=== PATIENT | female | born 2005 | race Two or more races ===

== ENCOUNTER → 2023-06-28 | Outpatient (CLI) | payer OTHER | LOC: M WHC 09:59 | PROVIDERS: ATTEND Advanced Practice Midwife | DX: Z34.82 Encounter for supervision of other normal pregnancy, second trimester (principal) ==

== ENCOUNTER → 2023-07-26 | Outpatient (CLI) | payer OTHER ==
[2023-07-26 16:15] LABS: TOTAL PROTEIN,RANDOM URINE 21.7 MG/DL (0.0-14.0)
[2023-07-26 16:20] LABS: CREATININE,RANDOM URINE 242.9 MG/DL
[2023-07-26 17:34] LABS: HEMATOCRIT 36.1 % (36.0-47.0); HEMOGLOBIN 12.2 g/dl (12.0-15.5); MEAN CORPUSCULAR HGB CONC 33.8 g/dl (32.0-36.5); MEAN CORPUSCULAR VOLUME 88.9 fl (80.0-96.0); PLATELET COUNT, AUTOMATED 244 10^3/uL (150-450); RED BLOOD COUNT 4.06 10^6/uL (4.00-5.40); WHITE BLOOD COUNT 7.2 10^3/uL (4.0-10.0)
[2023-07-26 18:00] LABS: URIC ACID 3.3 MG/DL (3.1-7.8)
[2023-07-26 18:02] LABS: LDH LACTATE DEHYDROGENASE 105 U/L (120-246)
[2023-07-26 18:04] LABS: ALT/SGPT 17 U/L (7.0-40); AST/SGOT < 8 U/L (<34); BILIRUBIN,TOTAL 0.3 MG/DL (0.3-1.2); CREATININE FOR GFR 0.44 MG/DL (0.55-1.30)
== END ==
LOC: M PLALAB 13:39
PROVIDERS: ATTEND Advanced Practice Midwife
DX: Z34.82 Encounter for supervision of other normal pregnancy, second trimester (principal)
CPT/HCPCS: 36415; 82247; 82570; 83615; 84156; 84450; 84460; 84550; 85027; G0463

== ENCOUNTER → 2023-08-04 | Outpatient (CLI) | payer OTHER | LOC: M WHC 13:10 | PROVIDERS: ATTEND Advanced Practice Midwife | DX: Z34.82 Encounter for supervision of other normal pregnancy, second trimester (principal) ==

== ENCOUNTER → 2023-08-26 | Outpatient (CLI) | payer OTHER ==
[2023-08-26 18:58] LABS: CHLAMYDIA DNA AMPLIFICATION NEGATIVE (NEGATIVE); GC DNA AMPLIFICATION NEGATIVE (NEGATIVE)
== END ==
LOC: M PLALAB 14:29
PROVIDERS: ATTEND Advanced Practice Midwife
DX: Z34.82 Encounter for supervision of other normal pregnancy, second trimester (principal)

== ENCOUNTER → 2023-10-18 | Outpatient (REF) | payer OTHER | LOC: M PLALAB 15:06 | PROVIDERS: ATTEND Obstetrics & Gynecology | DX: Z36.85 Encounter for antenatal screening for Streptococcus B (principal); Z3A.36 36 weeks gestation of pregnancy ==

== ENCOUNTER 2023-10-31 18:33 | Outpatient (CLI) | payer OTHER ==
[~2023-10-31] VITALS: Ht 167.6 cm; Wt 99.8 kg
[2023-10-31] MEDS ORDERED: HOME MED LIST COMPLETE! XX SCH (19:00)
[2023-10-31 19:48] LABS: TOTAL PROTEIN,RANDOM URINE 30.5 MG/DL (0.0-14.0)
== END 2023-10-31 20:11 | disposition home or self-care (01) ==
LOC: M LDO 18:33
PROVIDERS: ATTEND Advanced Practice Midwife
DX: O36.8130 Decreased fetal movements, third trimester, not applicable or unspecified (principal); Z87.59 Personal history of other complications of pregnancy, childbirth and the puerperium; Z3A.37 37 weeks gestation of pregnancy
CPT/HCPCS: 59025; 82570; 84156; G0463

== ENCOUNTER 2023-11-02 17:11 | Inpatient (IN) | payer OTHER ==
[~2023-11-02] VITALS: Ht 167.6 cm; Wt 99.1 kg
[2023-11-02] MEDS ORDERED: PENICILLIN G POTASSIUM 5 MU IV 5 MU in D5W MINI-BAG PLUS 100 ML IV STA (17:23)
[2023-11-02] MEDS ORDERED: CARBOPROST TROMETHAMINE 250 MCG/ML AMP IM PRN (17:25)
[2023-11-02] MEDS ORDERED: OXYTOCIN DRIP 30 UNITS in IV 1 EA IV PRN (17:25)
[2023-11-02] MEDS ORDERED: LIDOCAINE 1% MDV 20ML VIAL INFIL PRN (17:25)
[2023-11-02] MEDS ORDERED: TRANEXAMIC ACID INJection 1,000 MG in NS 100 ML IV PRN (17:25)
[2023-11-02] MEDS ORDERED: OXYTOCIN INJ 10UNITS/ML 1ML VIAL IM PRN (17:25)
[2023-11-02 17:26] VITALS: BP 142/86; O2SAT 99
[2023-11-02] MEDS ORDERED: HOME MED LIST COMPLETE! XX SCH (17:40)
[2023-11-02 18:15] VITALS: BP 131/83
[2023-11-02] MEDS: miSOPROStol 50MCG 1/2 TABLET PO SCH (18:15)
[2023-11-02 18:19] LABS: HEMATOCRIT 36.7 % (36.0-47.0); HEMOGLOBIN 12.1 g/dl (12.0-15.5); MEAN CORPUSCULAR HEMOGLOBIN 27.9 pg (27.0-33.0); MEAN CORPUSCULAR VOLUME 84.6 fl (80.0-96.0); PLATELET COUNT, AUTOMATED 201 10^3/uL (150-450); RED BLOOD COUNT 4.34 10^6/uL (4.00-5.40); WHITE BLOOD COUNT 5.7 10^3/uL (4.0-10.0)
[2023-11-02 18:49] LABS: LDH LACTATE DEHYDROGENASE 178 U/L (120-246)
[2023-11-02 18:51] LABS: ALT/SGPT < 9 U/L (7.0-40); AST/SGOT 13 U/L (<34); BILIRUBIN,TOTAL 0.3 MG/DL (0.3-1.2); CREATININE FOR GFR 0.53 MG/DL (0.55-1.30)
[2023-11-02 18:57] LABS: CREATININE,RANDOM URINE 44.3 MG/DL
[2023-11-02 18:58] LABS: TOTAL PROTEIN,RANDOM URINE < 6.0 MG/DL (0.0-14.0)
[2023-11-02 19:12] LABS: URIC ACID 4.6 MG/DL (3.1-7.8)
[2023-11-02 19:14] VITALS: BP 126/91
[2023-11-02 20:49] VITALS: BP 128/80
[2023-11-03] VITALS (29 sets, daily range): BP systolic 97–145; BP diastolic 55–96; O2SAT 96–98
[2023-11-03] MEDS: LR 1,000 ML IV SCH (02:27)
[2023-11-03] MEDS: PENICILLIN G POTASSIUM 5 MU IV 5 MU in D5W MINI-BAG PLUS 100 ML IV STA (02:27)
[2023-11-03] MEDS: OXYTOCIN DRIP 30 UNITS in IV 1 EA IV SCH ×2 (02:28→11:25)
[2023-11-03] MEDS ORDERED: LR 500 ML IV PRN (04:40)
[2023-11-03] MEDS ORDERED: ePHEDrine SULFATE 25 MG/5 ML(5MG/ML) SYRINGE IVP PRN (04:40)
[2023-11-03] MEDS ORDERED: EPIDURAL/PCA KEYS XX PRN (04:40)
[2023-11-03] MEDS ORDERED: ONDANSETRON 4MG 2ML VIAL IV PRN (04:40)
[2023-11-03] MEDS ORDERED: NALOXONE INJ 0.4MG/1ML VIAL IV PRN (04:40)
[2023-11-03] MEDS ORDERED: diphenhydrAMINE 50MG/ML VIAL IV PRN (04:40)
[2023-11-03] MEDS: FENTANYL/ROPIVACAINE/NACL BAG 100 ML EPIDURAL SCH (04:45)
[2023-11-03] MEDS: PEN G POT 3,000,000 UNIT/50 ML 3,000,000 UNIT in IV 1 EA IV SCH (06:25)
[2023-11-03] MEDS: FERROUS SULFATE 325MG TAB PO SCH (09:00)
[2023-11-03] MEDS: PRENATAL VITAMINS CHEWABLE TABLET PO SCH (09:00)
[2023-11-03] MEDS: OXYTOCIN DRIP 30 UNITS in IV 1 EA IV PRN (10:58)
[2023-11-03] MEDS ORDERED: DIBUCAINE 1% OINTMENT 30GM TOP PRN (11:25)
[2023-11-03] MEDS ORDERED: METHYLERGONOVINE MALEATE 0.2 MG TAB PO PRN (11:25)
[2023-11-03] MEDS ORDERED: IBUPROFEN 800 MG TAB PO PRN (11:25)
[2023-11-03] MEDS ORDERED: ACETAMINOPHEN TAB 650MG DOSE (2X325MG) PO PRN (11:25)
[2023-11-03] MEDS ORDERED: RHOGAM 300MCG (1500IU) INJ IM SCH (11:25)
[2023-11-03] MEDS ORDERED: ACETAMINOPHEN 500 MG TAB PO PRN (11:25)
[2023-11-03] MEDS ORDERED: DOCUSATE SODIUM 100MG CAPSULE PO PRN (11:25)
[2023-11-03] MEDS ORDERED: MOM 30ML SUSPENSION UDC PO PRN (11:25)
[2023-11-03] MEDS ORDERED: CALCIUM CARBONATE 500 MG CHEW U/D PO PRN (11:25)
[2023-11-03] MEDS: IBUPROFEN 600MG TAB PO PRN (20:04)
[2023-11-04 06:00] VITALS: BP 124/67; O2SAT 99
[2023-11-05] MEDS ORDERED: MEASLES,MUMPS,RUBELLA VACCINE INJ (MMR-II) SC.IMMUN ONE (09:00)
== END 2023-11-04 14:05 | disposition home or self-care (01) | DRG 807 ==
LOC: M LDI 17:11 → M OBS 11-03 11:20 → M LDI 11-03 11:25 → M OBS 11-03 12:10
PROVIDERS: ADMIT Advanced Practice Midwife; ATTEND Obstetrics & Gynecology
PROC: 3E0P7GC Introduction of Other Therapeutic Substance into Female Reproductive, Via Natural or Artificial Opening (ICD-10-PCS; 2023-11-02)
PROC: 10E0XZZ Delivery of Products of Conception, External Approach (ICD-10-PCS; principal; 2023-11-03)
PROC: 0HQ9XZZ Repair Perineum Skin, External Approach (ICD-10-PCS; 2023-11-03)
DX: O13.4 Gestational [pregnancy-induced] hypertension without significant proteinuria, complicating childbirth (principal); Z37.0 Single live birth; Z3A.38 38 weeks gestation of pregnancy; O99.824 Streptococcus B carrier state complicating childbirth; O70.0 First degree perineal laceration during delivery